=== PATIENT | male | born 2000 | race Caucasian/White ===

== ENCOUNTER 2022-08-10 05:46 | Outpatient (CLI) | payer MEDICAID ==
[2022-08-15] MEDS ORDERED: VIT1CAPS14 PO (17:43)
[2022-08-15] MEDS ORDERED: CHOL200059 PO (17:43)
[2022-08-15] MEDS ORDERED: CETI10CA PO (17:43)
[2022-08-15] MEDS ORDERED: LEVO150T6 PO (17:43)
[2022-08-15] MEDS ORDERED: POLY17PO6 PO (17:43)
== END 2022-08-15 17:48 | disposition home or self-care (01) ==
LOC: PREOP 05:46
PROVIDERS: ATTEND Otolaryngology Otolaryngology/Facial Plastic Surgery
DX: Z01.818 Encounter for other preprocedural examination (principal)

== ENCOUNTER 2022-08-17 07:53 | Day surgery (SDC) | payer MEDICAID ==
[2022-08-17] VITALS (11 sets, daily range): BP systolic 87–135; BP diastolic 50–80
[~2022-08-17] VITALS: Ht 160 cm; Wt 91.5 kg
[~2022-08-17 07:53] MED LIST: CETI10CA PO; CHOL200059 PO; LEVO150T6 PO; POLY17PO6 PO; VIT1CAPS14 PO
[2022-08-17] MEDS ORDERED: APAP 325 MG/10.15 ML LIQ (TYLENOL) UDC PO PRN (08:15)
--- NOTE | 2022-08-17 08:15 | Progress Note-Post Operative ---
Post-Operative Progess Note Surgeon (s)/Caustic Liquor Maker (s) Surgeon JILL HARRY MD Caust[employer] Liqu[employer] Maker n/a Pre-Operative Diagnosis Chronic Left ALBERTO Post-Operative Diagnosis same Post-Op Procedure Note Date of Procedure: Aug 17, 2022 Name of Procedure Performed: Left Myringotomy with Tube Description & Findings Description and Findings: n/a Anesthesia Type lma Estimated Blood Loss minimal Packing none. Specimen(s) collected/removed none JILL HARRY MD Aug 17, 2022 08:15
--- NOTE | 2022-08-17 08:15 | Progress Note-Pre Operative ---
Pre-Operative Progress Note Date of Available H&P: Aug 17, 2022 Date H&P Reviewed: Aug 17, 2022 Time H&P Reviewed: 08:00 History & Physical: H&P Reviewed, Patient Examed, No changes noted Changes from last HP none Pre-Operative Diagnosis: Chronic Left ALBERTO JILL HARRY MD Aug 17, 2022 08:15
[2022-08-17] MEDS ORDERED: ONDANSETRON 4 MG/2 ML (SDV) Z0FRAN ONE (08:19)
[2022-08-17] MEDS ORDERED: proPOfol 200 MG/20 ML (DIPRIVAN) VIAL IV ONE (08:19)
[2022-08-17] MEDS ORDERED: MIDAZOLAM 2 MG/2 ML (VERSED) VIAL ONE (08:19)
[2022-08-17] MEDS ORDERED: LIDOCAINE PF 2% 5 ML (XYLOCAINE) VIAL ONE (08:19)
[2022-08-17] MEDS ORDERED: fentaNYL INJ 100 MCG/2 ML AMP ONE (08:19)
[2022-08-17] MEDS ORDERED: SEVOFLURANE (ULTANE) 15 ML INHAL SOLN ONE (08:19)
[2022-08-17] MEDS ORDERED: LACTATED RINGERS 1,000 ML IV PRN (09:00)
--- NOTE | 2022-08-17 09:08 | Anesthesia-General Post-Op ---
General Patient Condition Mental Status/LOC: Same as Preop Cardiovascular: Satisfactory Nausea/Vomiting: Absent Respiratory: Satisfactory Pain: Controlled Complications: Absent Post Op Complications Complications None Follow Up Care/Instructions Patient Instructions None needed. Anesthesia/Patient Condition Patient Condition Patient is doing well, no complaints, stable vital signs, no apparent adverse anesthesia problems. No complications reported per nursing. YUE REYEZ CRNA Aug 17, 2022 09:08
[2022-08-17] MEDS ORDERED: morphine INJ 10 MG/ML 1ML (SYR OR VIAL) IVP ONE (09:15)
[2022-08-17] MEDS ORDERED: OFLO5DRO33 EACH EAR (10:17)
== END 2022-08-17 11:10 | disposition home or self-care (01) ==
LOC: SDC 07:53
PROVIDERS: ATTEND Otolaryngology Otolaryngology/Facial Plastic Surgery
DX: H65.22 Chronic serous otitis media, left ear (principal); H90.72 Mixed conductive and sensorineural hearing loss, unilateral, left ear, with unrestricted hearing on the contralateral side; H90.41 Sensorineural hearing loss, unilateral, right ear, with unrestricted hearing on the contralateral side; Z28.310 Unvaccinated for COVID-19
CPT/HCPCS: 87081